=== PATIENT | female | born 1935 | race Caucasian/White ===

== ENCOUNTER 2017-04-13 11:46 | Inpatient (IN) | payer OTHER ==
[~2017-04-13] VITALS: Ht 147.3 cm; Wt 74.9 kg
[2017-04-13] MEDS ORDERED: ENOXAPARIN 1 MG/KG SQ SCH (15:00)
[2017-04-13] MEDS ORDERED: ONDANSETRON INJ 2 MG/ML 2 ML VIAL IV PRN (15:00)
[2017-04-13] MEDS ORDERED: ACETAMINOPHEN 325 MG TAB PO PRN (15:00)
[2017-04-13] MEDS ORDERED: MAGNESIUM HYDROXIDE SUSP 30 ML UDC PO PRN (15:00)
[2017-04-13] MEDS: PATIENT'S ALLERGY INFO NEEDS ENTERED SCH ×3 (15:45→16:51)
--- NOTE | 2017-04-13 15:48 | History and Physical ---
History & Physical Date & Time of Service: Apr 13, 2017 at 15:34 Chief Complaint: Pulmonary Embolism Primary Care Physician: Alonzo Brown M.D. History of Present Illness Source: patient, hospital records 81 y/o F who was transferred today from [facility] for possible PE. Pt was admitted there on 04/12 after having worsening SOB for 11 days SHIP MATE. She was found to have a neg CXR, EKG, and trop, however she had an elevated ddimer. Due to her renal fxn, it is not possible to undergo a CTA. She had a CT non-contrast that was neg. LE US b/l neg for DVT. VQ is available at that facility, however no tech was available to perform it over the weekend, so transfer was requested to our facility. Pt was treated with O2 and lovenox 70mg BID. She states that she is overall improved. SHIP MATE she was SOB at rest and even moreso with any exertion, even short distances. She states she is no longer SOB and she was able to ambulate to the bathroom after arrival to [facility] without issue. Denies chest pain, LE pain or swelling. She did note that at times when she would get SOB she would have mild lightheadedness, but no syncope. Pt denies fever, abd pain, n/v/c/d. Past Medical/Surgical History HTN Hypothyroid Hx of LE DVT, remote and not on anticoagulation at this time Social History Smoking Status: Former Smoker (smoked 1pack per week, quit in 1981) Alcohol Use: none Drug Use: none Review of Systems Pertinent positives and negatives reviewed in HPI--all others negative Physical Exam General Appearance: WD/WN, no apparent distress Head: normocephalic, atraumatic Eyes: normal inspection, EOMI, sclerae normal Respiratory/Chest: no respiratory distress, + crackles Cardiovascular: regular rate, rhythm, no edema Abdomen/GI: non tender, soft Extremities/Musculoskelatal: no calf tenderness, no pedal edema Neurologic/Psych: alert, normal mood/affect, oriented x 3 Skin: normal color, warm/dry Diagnostics Diagnostic Radiology CXR, CT noncontrast, LE US all neg at OSH Impression Assessment and Plan 81 y/o F who was transferred from [facility] for further assessment of SOB. SOB: PE vs angina CXR, CT noncontrast, LE US neg at OSH Unable to obtain CTA due to renal fxn Unable to obtain VQ scan at OSH due to no available sleep technician VQ pending Was treated with lovenox 70mg BID there, will change to heparin gtt given renal function Pt has felt improved with O2 and lovenox interventions at OSH May need t/c stress ECHO if VQ neg Trops neg x3 at OSH CBC, TSH WNL at OSH ARF: cr 1.4 Monitor HTN: labile, continue home meds Metoprolol PRN Hypothyroid: TSH WNL continue home meds Other: Full code AHA diet Heparin for DVT proph Level of Care Telemetry Resuscitation Status FULL RESUSCITATION VTE Prophylaxis VTE Risk Assessment Done? Y/N: Yes Risk Level: Low
[2017-04-13 15:50] VITALS: BP 175/70
[2017-04-13 16:00] VITALS: BP 183/91; PULSE 75; TEMP 36.2; O2SAT 97; Ht 147.3 cm; Wt 74.9 kg
[2017-04-13] MEDS ORDERED: LISI-461 PO (16:37)
[2017-04-13] MEDS ORDERED: FURO-85 PO (16:38)
[2017-04-13] MEDS ORDERED: LEVO50TA PO (16:39)
[2017-04-13 16:59] LABS: BASO % 0.3 %; BASO ABS # 0.01 K/uL (0-0.2); EOS % 6.7 %; EOS ABS # 0.25 K/uL (0-0.5); HEMATOCRIT 41.4 % (37-47); HEMOGLOBIN 13.7 g/dL (12.0-16.0); LYMPH ABS # 1.71 K/uL (1.2-3.4); MEAN CELL VOLUME 95.4 fL (80-100); MEAN CORPUSCULAR HEMOGLOBIN 31.6 pg (25-34); MEAN PLATELET VOLUME 10.1 fL (7.4-10.4); MONO % 14.2 %; MONO ABS # 0.53 K/uL (0.11-0.59); NEUT % 32.8 %; NEUT ABS # 1.22 K/uL (1.4-6.5); PLATELET COUNT 201 K/uL (130-400); RED CELL DISTRIBUTION WIDTH CV 13.5 % (11.5-14.5); RED CELL DISTRIBUTION WIDTH SD 47.2 fL (36.4-46.3); WHITE BLOOD COUNT 3.72 K/uL (4.8-10.8)
[2017-04-13 17:08] LABS: MEAN CORPUSCULAR HGB CONC 33.1 g/dl (32-36)
[2017-04-13 17:11] LABS: PTT PATIENT 35.2 SECONDS (21.0-31.0)
[2017-04-13] MEDS: METOPROLOL TARTRATE 1 MG/ML VIAL IV. SCH ×3 (17:48→23:56)
[2017-04-13] MEDS: HEPARIN 25,000 UNIT/500ML D5W 500 ML IV PRN (18:34)
[2017-04-13 19:26] VITALS: BP 164/76; PULSE 56; TEMP 36.7; O2SAT 99
[2017-04-13 23:43] VITALS: BP 173/70; PULSE 64; TEMP 37.3; O2SAT 95
[2017-04-14 01:07] VITALS: BP 158/77; PULSE 63
[2017-04-14 01:08] LABS: PTT PATIENT 110.6 SECONDS (21.0-31.0)
[2017-04-14] MEDS: HEPARIN 25,000 UNIT/500ML D5W 500 ML IV PRN ×2 (02:10→10:05)
[2017-04-14 04:05] VITALS: BP 152/65; PULSE 59; TEMP 37.1; O2SAT 97
[2017-04-14] MEDS: METOPROLOL TARTRATE 1 MG/ML VIAL IV. SCH ×2 (04:10→08:26)
[2017-04-14 05:54] LABS: HEMATOCRIT 39.1 % (37-47); HEMOGLOBIN 12.9 g/dL (12.0-16.0); MEAN CELL VOLUME 94.9 fL (80-100); MEAN CORPUSCULAR HEMOGLOBIN 31.3 pg (25-34); MEAN PLATELET VOLUME 10.2 fL (7.4-10.4); PLATELET COUNT 179 K/uL (130-400); RED CELL DISTRIBUTION WIDTH CV 13.6 % (11.5-14.5); RED CELL DISTRIBUTION WIDTH SD 47.2 fL (36.4-46.3); WHITE BLOOD COUNT 4.72 K/uL (4.8-10.8)
[2017-04-14 06:13] LABS: CALCIUM 8.1 mg/dl (8.5-10.1); CREATININE 0.95 mg/dl (0.60-1.20); POTASSIUM 3.8 mmol/L (3.5-5.1)
[2017-04-14 08:02] VITALS: BP 154/71; PULSE 58; TEMP 37; O2SAT 94
[2017-04-14] MEDS ORDERED: SODIUM CHLORIDE 0.9% 500ML 500 ML IV SCH (08:30)
[2017-04-14 08:58] LABS: PTT PATIENT 119.6 SECONDS (21.0-31.0)
[2017-04-14] MEDS ORDERED: OPTIRAY 320 IV PRN (09:15)
--- NOTE | 2017-04-14 10:16 | DIAGNOSTIC IMAGING REPORT ---
CHEST CTA for PULMONARY ARTERIES CT DOSE: 510.35 mGy.cm HISTORY: Short of breath. Elevated d-dimer. TECHNIQUE: Multiaxial CT images of the chest were performed following the intravenous administration of contrast to evaluate the pulmonary arteries. Maximal intensity projection images were also obtained. A dose lowering technique was utilized adhering to the principles of ALARA. COMPARISON STUDY: Chest CT 04/12/2017. FINDINGS: Normal caliber thoracic aorta with no evidence for dissection. No pleural or pericardial effusions. The heart is top normal in size. No filling defects within the pulmonary arteries to suggest pulmonary embolus. Partially visualized 2.3 cm hypodense lesion within the right kidney. This favors a cyst. The adrenal glands, liver, and spleen are unremarkable. Borderline mediastinal and bilateral hilar lymphadenopathy, unchanged. Dominant right peritracheal lymph node measures 1 cm in short axis diameter. No suspicious lytic or blastic osseous lesions. No pneumothorax. Mild bronchial wall thickening. Stable 5 mm indeterminate pulmonary nodule within the right middle lobe on image 109. Mild respiratory motion artifact within the lung bases. No focal lung consolidations to suggest pneumonia. Mild scattered areas of air trapping identified. IMPRESSION: 1. No evidence for pulmonary embolus. 2. Mild bronchial wall thickening, unchanged. 3. A few scattered areas of mild air trapping are present. This may represent small airways disease. 4. Stable 5 mm indeterminate pulmonary nodule within the right middle lobe. Please refer to the chart below for recommended follow-up. 5. Stable borderline mediastinal and bilateral hilar lymphadenopathy. Please refer to below summary of Fleischner criteria recommendations for follow-up of incidental CT nodules (Zhao Gonzalez, Guidelines for management of small pulmonary nodules detected on CT scans: A statement from the Fleischner Society, Radiology 237: [phone].) SOLID NODULES Solitary nodule size: <6 mm * Low risk patients: no follow-up needed * high risk patients: optional CT at 12 months Solitary nodule size: 6-8 mm * Low risk patients: follow-up at 6-12 months, then consider further follow-up at 18-24 months * high risk patients: initial follow-up CT at 6-12 months and then at 18-24 months if no change Solitary nodule size: >8 mm * either low or high risk patients - consider follow-up CT at 3 months, and/or CT-PET, and/or biopsy Multiple nodules size: <6 mm * Low risk patients: no routine follow-up * high risk patients: optional CT at 12 months Multiple nodules size: 6-8 mm * Low risk patients: follow-up at 3-6 months, then consider further follow-up at 18-24 months * high risk patients: follow-up at 3-6 months, then at 18-24 months if no change Multiple nodules size: >8 mm * Low risk patients: follow-up at 3-6 months, then consider further follow-up at 18-24 months * high risk patients: follow-up at 3-6 months, then at 18-24 months if no change Note: newly detected indeterminate nodule in persons 35 years of age or older. * Low risk patients: minimal or absent history of smoking and/or other known risk factors * high risk patients: history of smoking or of other known risk factors (e.g. first degree relative with lung cancer, or exposure to asbestos, radon, uranium) * if a nodule up to 8 mm is partly solid or is ground glass further follow-up is required after 24 months to exclude possible slow growing adenocarcinoma (NATALIE) SUBSOLID NODULES Solitary pure ground-glass nodule * nodule size <6 mm - no CT follow-up required * nodule size >=6 mm - follow-up CT at 6-12 months, then every 2 years until 5 years Solitary part-solid nodule * nodule size <6 mm - no CT follow-up required * nodule size >=6 mm - follow-up CT at 3-6 months. If unchanged, and solid component remains <6 mm, then annual follow-up for 5 years Multiple subsolid nodules * nodule size <6 mm - follow-up CT at 3-6 months, consider further follow-up at 2 and 4 years if stable * nodule size >=6 mm - follow-up CT at 3-6 months, subsequent management based on the most suspicious nodule(s) Electronically signed by: Paco Garzon M.D. 04/14/2017 10:14 AM Dictated Date/Time: 04/14/2017 10:03 AM
[2017-04-14 12:02] VITALS: BP 165/53; PULSE 54; TEMP 36.4; O2SAT 95
[2017-04-14] MEDS: LISINOPRIL 10 MG TAB PO SCH (13:52)
[2017-04-14 16:00] VITALS: BP 173/71; PULSE 57; TEMP 36.7; O2SAT 94
--- NOTE | 2017-04-14 16:40 | Progress Note ---
Subjective Date of Service: Apr 14, 2017. Subjective Pt evaluation today including: conversation w/ patient, conversation w/ family (revisited to discuss w family at pt/family request), physical exam, chart review, lab review, review of studies, review of inpatient medication list feeling ok at rest - ongoign MCKEE. notes that it's been going on since around the week of . had MCKEE - then had mild cough and contestion type situation but nothing like when she's had a worse bronchitis or flu before - nothing that severe, and even as the cough has gone away her MCKEE has peristed. fairly severe. family notes even conversational dyspnea when she's on the phone last week. has been enough that she's not even eating and drinking enough due to the dyspnea. none at rest no f/c/s no body aches CT neg for PE was seen at PCP - treatted for bronchitis w neb - no real help. was in hops[facility] and then transferred here for further evaluation and treatment Review of Systems all other ROS otherwise negative except for as above Objective Vital Signs Date Time Temp Pulse Resp B/P (MAP) Pulse Ox O2 Delivery O2 Flow Rate FiO2 04/14/17 16:00 36.7 57 20 173/71 (105) 94 Room Air 04/14/17 12:02 36.4 54 18 165/53 (90) 95 Room Air 04/14/17 12:00 Room Air 04/14/17 08:26 58 154/71 04/14/17 08:02 37.0 58 18 154/71 (98) 94 Nasal Cannula 2.0 04/14/17 08:00 Room Air 04/14/17 04:10 69 158/69 04/14/17 04:05 37.1 59 18 152/65 (94) 97 Nasal Cannula 2.0 04/14/17 04:00 Nasal Cannula 2.0 04/14/17 01:07 63 158/77 (104) 04/14/17 00:00 Nasal Cannula 2.0 04/13/17 23:56 65 168/72 04/13/17 23:43 37.3 64 23 173/70 (104) 95 Nasal Cannula 2.0 04/13/17 21:19 72 176/86 04/13/17 20:04 Nasal Cannula 2.0 04/13/17 19:26 36.7 56 18 164/76 (105) 99 Nasal Cannula 2.0 04/13/17 17:48 184/89 Physical Exam General Appearance: no apparent distress Eyes: EOMI ENT: hearing grossly normal Neck: trachea midline Respiratory/Chest: lungs clear, normal breath sounds, no respiratory distress, no accessory muscle use Extremities: normal range of motion Neurologic/Psychiatric: human resources trainer II-XII nml as tested, alert, normal mood/affect Skin: normal color, warm/dry Laboratory Results Last 24 Hours Test 04/13/17 16:36 04/14/17 00:28 04/14/17 05:39 04/14/17 08:08 White Blood Count 3.72 K/uL 4.72 K/uL Red Blood Count 4.34 M/uL 4.12 M/uL Hemoglobin 13.7 g/dL 12.9 g/dL Hematocrit 41.4 % 39.1 % Mean Corpuscular Volume 95.4 fL 94.9 fL Mean Corpuscular Hemoglobin 31.6 pg 31.3 pg Mean Corpuscular Hemoglobin Concent 33.1 g/dl 33.0 g/dl Platelet Count 201 K/uL 179 K/uL Mean Platelet Volume 10.1 fL 10.2 fL Neutrophils (%) (Auto) 32.8 % Lymphocytes (%) (Auto) 46.0 % Monocytes (%) (Auto) 14.2 % Eosinophils (%) (Auto) 6.7 % Basophils (%) (Auto) 0.3 % Neutrophils # (Auto) 1.22 K/uL Lymphocytes # (Auto) 1.71 K/uL Monocytes # (Auto) 0.53 K/uL Eosinophils # (Auto) 0.25 K/uL Basophils # (Auto) 0.01 K/uL RDW Standard Deviation 47.2 fL 47.2 fL RDW Coefficient of Variation 13.5 % 13.6 % Immature Granulocyte % (Auto) 0.0 % Immature Granulocyte # (Auto) 0.00 K/uL Prothrombin Time 10.7 SECONDS Prothromb Time International Ratio 1.0 Activated Partial Thromboplast Time 35.2 SECONDS 110.6 SECONDS 119.6 SECONDS Partial Thromboplastin Ratio 1.4 4.3 4.6 Sodium Level 139 mmol/L Potassium Level 3.8 mmol/L Chloride Level 106 mmol/L Carbon Dioxide Level 28 mmol/L Anion Gap 5.0 mmol/L Blood Urea Nitrogen 19 mg/dl Creatinine 0.95 mg/dl Est Creatinine Clear Calc Drug Dose 39.3 ml/min Estimated GFR () 64.6 Estimated GFR (Non- 55.8 BUN/Creatinine Ratio 19.6 Random Glucose 84 mg/dl Calcium Level 8.1 mg/dl Assessment and Plan SOB: appearing most likely angina equivalent vs less likely resolving sx from lower respiratory infection -pt adamant that she wasn't really all that sick with her illness that caused cough, making infectious cause of MCKEE unlikely - especially without active infection ongoing or any serious signs of resolving infection -contrast CT negative for PE, did show bronchitis type change - but again see above - seems that this would be a diagnosis to explain her sx only if all else excluded, and even then with close f/u to ensure sx resolve -most concerning would be anginal equivalent - has ruled out for WA, but will get stress echo tomorrow (discussed with her twice she believes she'll do OK on treadmill) -since no clot, no WA - stopped anticoagulation -Trops neg x3 at OSH -CBC, TSH WNL at OSH ARF: cr 1.4 at OSH - 0.95 now -- appearing related to poor PO intake from being ill w MCKEE - family even notes that she wasn't eating or drinking well due to MCKEE Monitor, additional fluids if necessary HTN: labile, continue home meds Metoprolol PRN Hypothyroid: TSH WNL continue home meds, see above in regards to TSH Other: Full code AHA diet DVT proph - lovenox
[2017-04-14 19:56] VITALS: BP 157/75; PULSE 56; TEMP 36.4; O2SAT 95
[2017-04-15] VITALS (8 sets, daily range): BP systolic 151–187; BP diastolic 64–80; PULSE 55–59; TEMP 36.4–36.9; O2SAT 91–95
[2017-04-15] MEDS ORDERED: LEVOTHYROXINE 50 MCG TAB PO SCH (06:00)
[2017-04-15 06:30] LABS: PTT PATIENT 26.9 SECONDS (21.0-31.0)
[2017-04-15 06:46] LABS: CALCIUM 8.5 mg/dl (8.5-10.1); CREATININE 0.86 mg/dl (0.60-1.20)
[2017-04-15] MEDS: LISINOPRIL 10 MG TAB PO SCH (07:59)
[2017-04-15] MEDS: ENOXAPARIN 40 MG/0.4 ML SYR SQ SCH ×2 (07:59→08:02)
[2017-04-15] MEDS ORDERED: PERFLUTREN LIPID MICROSPHERE (DEFINITY) IV ONE (09:22)
[2017-04-15] MEDS ORDERED: VNTHFA/IN INH (15:02)
--- NOTE | 2017-04-15 15:04 | Discharge Instructions ---
Discharge Instructions Date of Service Apr 15, 2017. Admission Reason for Admission: Pulmonary Embolism Discharge Discharge Diagnosis / Problem: bronchitis possible copd with hx of smoking Discharge Goals Goal(s): Decrease discomfort, Improve function, Increase independence, Improve disease control, Improve nutritional status, Learn about illness, Diagnostic testing, Therapeutic intervention, Prevent Disease Progression, Specific goals Activity Recommendations Activity Limitations: resume your previous activity . Instructions / Follow-Up Instructions / Follow-Up you have shortness of breathing , possible bronchitis, or mild copd, with history smoking, and possible heavy second hand smocking I am giving you inhaler whne you leaving for home your contrast CT negative for Pulmonary embolization your cardiac stress test is negative for coronary artery disease per control supervisor verbal report, but you need to follow up with your pcp for the formal report you was having acute renal failure, now is resolved, you need to follow up with pcp about this - you need to follow up with your primary care physician in 1 week, - call your pcp if have chest pain, sob, palpitation, or if has any questions - take medication as instructed, never overdose or any misuse, or take with alcohol, because misuse of medicine may cause organ damage or , call your primary care physician if have questions of medicaitons. - call your primary care physician OR go to local emergency room if has any fever/chill, chest pain, shortness of breathing, nausea/vomiting/abdominal pain , facial droop/slurry speech/local weakness, or if has any questions. - fall precaution - diet as instructed - you should understand that it is important to follow up the above instruction , and "not following the above instruction" may cause delayed or missed care of your medical conditions which may cause permanent organ damage and even . Current Hospital Diet Patient's current hospital diet: Low Sodium Diet (2gm Na) Discharge Diet Recommended Diet: AHA Diet (Heart Healthy) Pending Studies Studies pending at discharge: no Laboratory Results Meds Administered (Past 24Hrs) Medications (Trade) Dose Ordered Sig/Brian Route Start Time Stop Time Status Last Admin Dose Admin Miscellaneous Information (Patient'S Allergy Info Needs Entered) 1 ea Q30M N/A 04/13/17 15:15 04/13/17 17:52 DC 04/13/17 16:51 1 EA Metoprolol Tartrate (Lopressor Iv) 5 mg Q4 IV. 04/13/17 16:00 04/14/17 12:18 DC 04/14/17 08:26 5 MG Heparin Sodium/ Dextrose 500 ml @ 15 mls/hr Q24H PRN IV 04/13/17 18:30 04/14/17 12:18 DC 04/14/17 10:05 15 MLS/HR Sodium Chloride 500 ml @ 250 mls/hr Q2H IV 04/14/17 08:30 04/14/17 10:29 DC 04/14/17 10:05 250 MLS/HR Levothyroxine Sodium (Synthroid Tab) 50 mcg DAILYBB PO 04/15/17 06:00 05/15/17 05:59 04/15/17 06:00 50 MCG Lisinopril (Zestril Tab) 10 mg DAILY PO 04/15/17 09:00 05/15/17 08:59 04/15/17 07:59 10 MG Enoxaparin Sodium (Lovenox Inj) 40 mg QAM SQ 04/15/17 09:00 05/15/17 08:59 04/15/17 08:02 40 MG Perflutren Lipid Microsphere (Definity) 2 ml ONE ONCE IV 04/15/17 09:22 04/15/17 09:23 DC 04/15/17 09:23 2 ML Medical Emergencies . Who to Call and When: Medical Emergencies: If at any time you feel your situation is an emergency, please call 911 immediately. . Non-Emergent Contact Non-Emergency issues call your: Primary Care Provider . . "Provider Documentation" section prepared by Omar De Jesus. . VTE Core Measure Inpt VTE Proph given/why not?: Enoxaparin (Lovenox)SQ
--- NOTE | 2017-04-15 16:34 | Discharge Summary ---
Discharge Summary Date of Service Apr 15, 2017. Discharge Summary Admission Date: Apr 13, 2017 at 15:55 Discharge Date: Apr 15, 2017 Principal Diagnosis: shortness of breathing , possible bronchitis, or mild copd , Problems/Secondary Diagnoses: acute renal failure Procedures: treadmill stress test was done Medication Reconciliation New Medications: Albuterol Hfa (Ventolin Hfa) 200 Puffs/42631 Mcg Aers 2-4 PUFFS INH Q6H for Shortness of Breath, #1 INHALER Continued Medications: Furosemide (Lasix) 20 Mg Tab 20 MG PO, TAB Levothyroxine Sodium (Synthroid) 50 Mcg Tab 50 MCG PO DAILY, TAB Lisinopril (Zestril) 10 Mg Tab 10 MG PO, TAB Discharge Exam feeling good, have been up and walk, no sob, only trace edema, have been up and walk to the door, family daughter and son in law is in bedside, and are supportive Review of Systems: Constitutional: No fever, No chills, No sweats, No weight loss, No weakness , No fatigue, No problem reported Eyes: No worsening of vision, No eye pain, No redness, No discharge, No diplopia, No problem reported ENT: No hearing loss, No unusual epistaxis, No nasal symptoms, No sore throat, No tinnitus, No dental problems, No trouble swallowing, No problem reported Respiratory: + wheezing (maricarmen lungs occasional ) Abdomen: No pain, No nausea, No vomiting, No diarrhea, No constipation, No GI bleeding, No problem reported Musculoskeletal: No joint pain, No muscle pain, No swelling, No calf pain, No problem reported Neurologic: No memory loss, No paralysis, No weakness, No numbness/tingling , No vertigo, No balance problems, No problem reported Psychiatric: No depression symptoms, No anhedonism, No anxiety, No insomnia , No substance abuse, No problem reported Endocrine: No fatigue, No excessive thirst, No excessive urination, No problem reported Hematologic / Lymphatic: No abnormal bleeding/bruising, No clotting problems , No swollen lymph nodes, No night sweats, No problem reported Integumentary: No rash, No itch, No new/changing skin lesions, No color change, No bleeding, No problem reported Hospital Course 81 y/o F was transferred from [facility] for possible PE. 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 She was found to have a neg CXR, EKG, and trop, however she had an elevated ddimer. Due to her renal fxn, it is not possible to undergo a CTA. LE US b/l neg for DVT. VQ is available at that facility, however no tech was available to perform it over the weekend, so transfer was requested to [facility]. Pt was treated with O2 and lovenox 70mg BID. She states that she is overall improved. SOFTWARE APPLICATIONS ARCHITECT she was SOB at rest , upon admission, states she is no longer SOB and she was able to ambulate to the bathroom after arrival to [facility] without issue. Denies chest pain, LE pain or swelling. denies fever, abd pain, n/v/c/d. for SOB/MCKEE: possible angina equivalent vs less likely resolving sx from lower respiratory infection, contrast CT negative for PE, did show bronchitis type change, Trops neg x3 , CBC, TSH WNL at OSH, treadmill echo was done, per verbal report from Dr. Ruiz it is negative, I did adviced pt to follow up with pcp for the formal results. ARF: cr 1.4 at OSH: resolved HTN: labile, continue home meds, possible need to adjust bp med with pcp Metoprolol PRN Hypothyroid: TSH WNL continue home meds, see above in regards to TSH Instructions / Follow-Up you have shortness of breathing , possible bronchitis, or mild copd, with history smoking, and possible heavy second hand smocking I am giving you inhaler whne you leaving for home your contrast CT negative for Pulmonary embolization your cardiac stress test is negative for coronary artery disease per foundry melt supervisor verbal report, but you need to follow up with your pcp for the formal report you was having acute renal failure, now is resolved, you need to follow up with pcp about this - you need to follow up with your primary care physician in 1 week, - call your pcp if have chest pain, sob, palpitation, or if has any questions - take medication as instructed, never overdose or any misuse, or take with alcohol, because misuse of medicine may cause organ damage or , call your primary care physician if have questions of medicaitons. - call your primary care physician OR go to local emergency room if has any fever/chill, chest pain, shortness of breathing, nausea/vomiting/abdominal pain , facial droop/slurry speech/local weakness, or if has any questions. - fall precaution - diet as instructed - you should understand that it is important to follow up the above instruction , and "not following the above instruction" may cause delayed or missed care of your medical conditions which may cause permanent organ damage and even . Total Time Spent: Greater than 30 minutes This includes examination of the patient, discharge planning, medication reconciliation, and communication with other providers. Discharge Instructions Please refer to the electronic Patient Visit Report (Discharge Instructions) for additional information. Additional Copies To Alonzo Brown M.D.
[2017-04-15] MEDS ORDERED: ENALAPRILAT IV 0.625 MG in DEXTROSE 5% 25ML 25 ML IV STA (16:40)
[2017-04-15] MEDS ORDERED: ENALAPRILAT IV 0.625 MG in DEXTROSE 5% 25ML 25 ML IV PRN (16:45)
--- NOTE | 2017-04-15 17:01 | EXERCISE STRESS ECHO ---
*NOTICE TO RECEIVING REPUBLICAN AGENCY This information is strictly Confidential and protected under [place] law. [place] law prohibits you from making any further disclosure of this information unless further disclosure is expressly permitted by the written consent of the person to whom it pertains or is authorized by law. A general authorization for the release of medical or other information is not sufficient for this purpose. Hospital accepts no responsibility if the information is made available to any other person, INCLUDING THE PATIENT. Interpretation Summary * Name: AJ PERALTA Study Date: 04/15/2017 08:05 AM BP: 178/74 mmHg * Patient Location: C.2T\S\S234\S\1 HR: 82 * : 1935 (M/d/) Gender: Female Height: 59 in * Age: 81 yrs Ethnicity: [place] Weight: 163 lb * Ordering Physician: Joe Spaulding * Referring Physician: Steven Rodriguez * Performed By: Magdalene Reece RDCS * * Reason For Study: CHEST PAIN * BSA: 1.7 m2 * -- Conclusions -- * 1. Negative exercise stress echo for ischemia at 94% MPHR. * 2. Negative stress ECG. * 3. Average functional capacity for age. Exercised 3 minutes, achieved 4.6 METS. * 4. Hypertensive response to exercise (Peak SBP 239). * 5. Normal resting biventricular size and function. Mild aortic regurigtation. Grade I diastolic dysfunction. Normal estimated PA and RA pressures. * 6. No prior studies for comparison. Procedure Details * ECHOEX, CPT #44232 * ECHO DOPPLER, CPT #95016 * ECHO COLOR FLOW, CPT #24418 * A contrast injection of Definity was performed to improve assessment of LV function. * Contrast was injected into an intravenous site in the left arm. * One vial of Definity ultrasound contrast was diluted in normal saline to a total volume of 10 ml. A total of '2' ml of solution was administered during imaging. * Lot # [id number] of Definity utilized for procedure. * Expiration date . * The attending nurse who injected the contrast agent was Ninfa Sims RN. Left Ventricle * The left ventricle is grossly normal size. * The basal septum is thickened and angulated consistent with sigmoid septum. * Ejection Fraction = 60-65%. * No regional wall motion abnormalities noted. Right Ventricle * The right ventricle is grossly normal size. * The right ventricular systolic function is normal as assessed by tricuspid annular plane systolic excursion (TAPSE) (normal >1.5 cm). Atria * The left atrium is mildly dilated. * Right atrial size is normal. * No ASD detected; PFO is not assessed. Mitral Valve * The mitral valve is grossly normal. * Mitral stenosis is absent. * There is trace mitral regurgitation. Tricuspid Valve * The tricuspid valve is not well visualized, but is grossly normal. * There is no tricuspid stenosis. * There is trace tricuspid regurgitation. Aortic Valve * The aortic valve opens well. * The aortic valve is trileaflet. * No hemodynamically significant valvular aortic stenosis. * Mild aortic regurgitation. Pulmonic Valve * The pulmonary valve is inadequately visualized, but the Doppler data is adequate for interpretation. * Trace pulmonic valvular regurgitation. Great Vessels * The aortic root and proximal ascending aorta are normal sized. Pericardium * There is no pericardial effusion. Stress Parameters * Normal baseline electrocardiogram. * Stress ECG: No ST changes. No arrhythmias. * No arrhythmia were noted with stress. * Rest heart rate was '82' BPM. * Rest blood pressure was '178/74' * Maximum heart rate achieved was 130 bpm. * Maximum heart rate was 94 % of maximum age-predicted heart rate. * Maximum blood pressure was '239/81' * Total exercise time was '3:00' * Maximum exercise MET level achieved was '4.60' METS * Maximum treadmill speed was '1.70' miles per hour. * Maximum treadmill elevation was '10.00'% grade. Left Ventricular Diastolic Function * Grade I diastolic dysfunction, (abnormal relaxation pattern). MMode 2D Measurements and Calculations IVSd 1.4 cm IVSs 1.5 cm LVIDd 3.0 cm LVIDs 1.7 cm LVPWd 0.97 cm LVPWs 1.7 cm IVS/LVPW 1.5 FS 43.1 % EDV(Teich) 35.1 ml ESV(Teich) 8.5 ml EF(Teich) 75.8 % EDV(cubed) 27.1 ml ESV(cubed) 5.0 ml EF(cubed) 81.6 % % IVS thick 8.3 % % LVPW thick 74.1 % LV mass(C)d 109.2 grams LV mass(C)dI 64.6 grams/m\S\2 LV mass(C)s 97.1 grams LV mass(C)sI 57.4 grams/m\S\2 SV(Teich) 26.6 ml SI(Teich) 15.8 ml/m\S\2 SV(cubed) 22.1 ml SI(cubed) 13.1 ml/m\S\2 Ao root diam 2.7 cm Ao root area 5.7 cm\S\2 ACS 1.5 cm LA dimension 3.0 cm LA/Ao 1.1 LVAd ap4 25.0 cm\S\2 LVLd ap4 7.3 cm EDV(MOD-sp4) 70.8 ml EDV(sp4-el) 72.5 ml LVAs ap4 12.8 cm\S\2 LVLs ap4 6.0 cm ESV(MOD-sp4) 23.7 ml ESV(sp4-el) 23.2 ml EF(MOD-sp4) 66.6 % EF(sp4-el) 68.0 % LVAd ap2 26.5 cm\S\2 LVLd ap2 7.4 cm EDV(MOD-sp2) 80.6 ml EDV(sp2-el) 80.8 ml LVAs ap2 12.9 cm\S\2 LVLs ap2 6.0 cm ESV(MOD-sp2) 23.6 ml ESV(sp2-el) 23.7 ml EF(MOD-sp2) 70.7 % EF(sp2-el) 70.7 % LVLd %diff 0.74 % EDV(MOD-bp) 75.9 ml LVLs %diff -0.98 % ESV(MOD-bp) 23.7 ml EF(MOD-bp) 68.8 % SV(MOD-sp4) 47.2 ml SI(MOD-sp4) 27.9 ml/m\S\2 SV(MOD-sp2) 57.0 ml SI(MOD-sp2) 33.7 ml/m\S\2 SV(MOD-bp) 52.3 ml SI(MOD-bp) 30.9 ml/m\S\2 SV(sp4-el) 49.3 ml SI(sp4-el) 29.2 ml/m\S\2 SV(sp2-el) 57.1 ml SI(sp2-el) 33.8 ml/m\S\2 Doppler Measurements and Calculations MV E max susie 87.5 cm/sec MV A max susie 112.5 cm/sec MV E/A 0.78 MV dec time 0.21 sec Ao V2 max 113.9 cm/sec Ao max PG 5.2 mmHg Ao max PG (full) 1.0 mmHg AI max susie 183.5 cm/sec AI max PG 13.5 mmHg AI dec slope 51.0 cm/sec\S\2 AI P1/2t 1053.4 msec LV V1 max PG 4.1 mmHg LV V1 max 101.7 cm/sec PA V2 max 77.4 cm/sec PA max PG 2.4 mmHg TR max susie 249.6 cm/sec
[2017-04-15] MEDS ORDERED: LISINOPRIL 5 MG TAB PO STA (17:38)
[2017-04-16] MEDS ORDERED: LISINOPRIL 10 MG TAB PO SCH (09:00)
== END 2017-04-15 19:00 | disposition home or self-care (01) | DRG 191 ==
LOC: C.2T 15:55
PROVIDERS: ADMIT Family Medicine; ATTEND Hospitalist
DX: J44.0 Chronic obstructive pulmonary disease with (acute) lower respiratory infection (principal); N17.9 Acute kidney failure, unspecified; J40 Bronchitis, not specified as acute or chronic; I10 Essential (primary) hypertension; E03.9 Hypothyroidism, unspecified; Z87.891 Personal history of nicotine dependence